=== PATIENT | female | born 2000 | race Caucasian/White ===

== ENCOUNTER 2020-11-20 20:38 | Emergency (ER) | payer SELFPAY ==
[~2020-11-20] VITALS: Ht 165.1 cm; Wt 60.0 kg
[2020-11-20] MEDS ORDERED: P-EP-91 MT (21:29)
[2020-11-20] MEDS ORDERED: IBUP-2029 MT (21:29)
[2020-11-20] MEDS ORDERED: IBUPROFEN 600MG TABLET PO ONE (21:30)
[2020-11-20 21:49] VITALS: BP 112/77
== END 2020-11-20 21:50 | disposition home or self-care (01) ==
LOC: ER 20:38
DX: B34.9 Viral infection, unspecified (principal)
CPT/HCPCS: 99282